=== PATIENT | male | born 1980 | race Caucasian/White ===

== ENCOUNTER 2022-01-09 10:52 | Outpatient (CLI) | payer OTHER, SELFPAY ==
--- NOTE | 2022-01-09 11:00 | MR_ITS ---
WS: [id number] MRA ANGIOGRAPHY [place] [facility] [place] HISTORY: G40.909 - Epilepsy, unspecified, not intractable, confusion and memory loss. COMPARISON: None available. TECHNIQUE: 3-D MR angiography is performed of the [place]. All images are reviewed including source images. Small caliber distal LEFT vertebral artery. The artery is patent. Dominant RIGHT vertebral artery. No rmal size basilar artery. No aneurysm. Posterior cerebral and the posterior communicating arteries ar e both identified. Hypoplastic LEFT posterior communicating artery. No thrombus or occlusions. Intracranial carotid arteries are patent. No significant stenosis or atherosclerotic disease. No aneu rysms. The middle and anterior cerebral arteries are patent. Anterior communicating artery is normal. Small mucous retention cyst RIGHT maxillary sinus with mucoperiosteal thickening. Volume loss and enc ephalomalacia in the RIGHT MCA territory. This will be better evaluated by dedicated MRI. MR/MR angio head wo con [id number] IMPRESSION: 1. No significant atherosclerosis within the [place]. 2. Very small caliber but patent distal LEFT vertebral artery. 3. No cerebral artery aneurysms.
== END 2022-01-09 10:53 | disposition home or self-care (01) ==
LOC: RAD 10:54
PROVIDERS: PCP Family Medicine; Visit Provider Specialist
DX: G40.909 Epilepsy, unspecified, not intractable, without status epilepticus (principal)
CPT/HCPCS: 70544

== ENCOUNTER 2022-01-09 10:53 | Outpatient (CLI) | payer OTHER, SELFPAY ==
--- NOTE | 2022-01-09 11:15 | MR_ITS ---
WS: [id number] MRI BRAIN WITH AND WITHOUT CONTRAST HISTORY: G40.909 - Epilepsy, unspecified, not intractable, confusion and memory loss. Numerous prior surgeries from head trauma. COMPARISON: None. TECHNIQUE: Multiplanar imaging performed through the brain with MultiHance 20 ml's IV. 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 There are multiple fluid-filled cavities with associated hemosiderin involving th e frontal, temporal and parietal lobes. More extensive frontal lobe and parietal lobe involvement on the RIGHT. Bilateral white matter signal abnormalities are noted at the vertex involving the frontopa rietal cortex. No evidence for acute hemorrhage. There is no acute ischemic event. Bilateral retrocer ebellar arachnoid cyst. Dural thickening over the RIGHT temporal, frontal and parietal lobes. This do es not enhance. Probably related to trauma and may be postoperative. Visualized brainstem is negative . No inferior displacement of cerebellar tonsils. Very small venous angioma LEFT cerebellum. Dural venous sinuses are normal. Paranasal sinuses: Increased signal and mucoperiosteal thickening throughout the frontal sinus cavity which is irregularly shaped. Posttraumatic changes. Mild paranasal sinus disease extends into the et hmoid and sphenoid sinuses. Mastoid air cells: Normal. Calvarium and scalp: No acute fracture. Note: No prior studies are available for comparison. 1. No acute infarct and no enhancing masses. 2. Significant chronic posttraumatic volume loss with encephalomalacia involving a large portion of the RIGHT cerebrum and also portions of the anterior LEFT frontal lobe and at the frontal parietal ve rtex. 3. Marked thickening of the RIGHT dura probably all post traumatic and may be postoperative. 4. Small LEFT cerebellar venous angioma. 5. RIGHT frontal and ethmoid air cell disease. MR/MR head wo/w con [id number] IMPRESSION:
[2022-01-09] MEDS: gadobenate dimeglumine 20 mL vial IV (13:27)
== END 2022-01-09 10:54 | disposition home or self-care (01) ==
LOC: RAD 10:54
PROVIDERS: PCP Family Medicine; Visit Provider Specialist
DX: G40.909 Epilepsy, unspecified, not intractable, without status epilepticus (principal)
CPT/HCPCS: 70553

== ENCOUNTER → 2024-09-29 11:54 | Outpatient (BNVA) | payer MEDICARE, OTHER, SELFPAY | PROVIDERS: PCP Family Medicine; Visit Provider Specialist | DX: G40.802 Other epilepsy, not intractable, without status epilepticus (principal); G40.909 Epilepsy, unspecified, not intractable, without status epilepticus; Z86.79 Personal history of other diseases of the circulatory system; S06.9X0S Unspecified intracranial injury without loss of consciousness, sequela; G43.711 Chronic migraine without aura, intractable, with status migrainosus; X58.XXXS Exposure to other specified factors, sequela | CPT/HCPCS: 99213 ==